=== PATIENT | female | born 1985 | race American Indian/Alaskan Native ===

== ENCOUNTER 2020-10-24 14:24 | Outpatient (CLI) | payer OTHER ==
[2020-10-24 15:12] LABS: % Iron Saturation 26.09 %; Alanine Aminotransferase 12 units/L (7-56); Albumin 3.7 g/dL (3.9-5); BUN/Creatinine Ratio 13; Blood Urea Nitrogen 10 mg/dL (7-17); Hemolysis Index 22; Iron 60 ug/dL (37-170); LDL Cholesterol,Direct 121 mg/dL (50-130); Total Iron Binding Capacity 230 mcg/dL (250-450)
[2020-10-24 15:24] LABS: Basophils % (Auto) 0.3 % (0.0-1.8); Eosinophils # (Auto) 0.1 K/mm3 (0.0-0.4); Eosinophils % (Auto) 1.3 % (0.0-4.3); Hemoglobin 13.4 gm/dl (10.1-14.3); Lymphocytes # (Auto) 2.8 K/mm3 (1.2-5.4); Lymphocytes % (Auto) 49.5 % (13.4-35.0); Mean Corpuscular HGB Conc 34 % (30-34); Mean Corpuscular Volume 85 fl (79-97); Monocytes # (Auto) 0.5 K/mm3 (0.0-0.8); Monocytes % (Auto) 8.7 % (0.0-7.3); Platelet Count 310 K/mm3 (140-440); Red Blood Count 4.69 M/mm3 (3.65-5.03); Red Cell Distribution Width 13.2 % (13.2-15.2)
[2020-10-24 18:37] LABS: Chol/HDL Ratio 3.74 %; HDL Cholesterol 47 mg/dL (40-59)
[2020-10-28 14:59] LABS: Vitamin D, 25-OH, D2 <4 ng/mL
== END 2020-10-24 14:25 | disposition home or self-care (01) ==
LOC: LAB 14:24
PROVIDERS: ATTEND Surgery
DX: E55.9 Vitamin D deficiency, unspecified (principal); K90.9 Intestinal malabsorption, unspecified; E66.01 Morbid (severe) obesity due to excess calories; K30 Functional dyspepsia; E11.9 Type 2 diabetes mellitus without complications
CPT/HCPCS: 36415; 80053; 80061; 82306; 82607; 82728; 83036; 83550; 84443; 85025; 85730

== ENCOUNTER → 2020-10-27 | Outpatient (CLI) | payer OTHER | END | disposition home or self-care (01) | LOC: SLR 11:00 | PROVIDERS: ATTEND Surgery | DX: G47.30 Sleep apnea, unspecified (principal) | CPT/HCPCS: 95810 ==

== ENCOUNTER 2020-11-21 07:50 | Day surgery (SDC) | payer OTHER ==
[~2020-11-21 07:50] MED LIST: SODIUM CHLORIDE 0.9% 1000 ML 1,000 ML IV SCH
[2020-11-21] MEDS ORDERED: LIDOCAINE MPF (2%) 20 MG/1 ML VIAL 5 ML ONE (09:00)
--- NOTE | 2020-11-21 09:02 | Anesthesia Day of Surgery ---
Anesthesia Day of Surgery - Day of Surgery Patient Examined: Yes Patient H&P Reviewed: Yes Patient is NPO: Yes
--- NOTE | 2020-11-21 09:03 | Anesthesia Consultation ---
Anesthesia Consult and Med Hx Date of service: 11/21/20 - Airway Anesthetic Teeth Evaluation: Good ROM Head & Neck: Adequate Mental/Hyoid Distance: Adequate Mallampati Class: Class II Intubation Access Assessment: Good - Pre-Operative Health Status ASA Pre-Surgery Classification: ASA2 Proposed Anesthetic Plan: MAC - Pulmonary Hx Smoking: Yes (Quit) Hx Asthma: Yes Hx Sleep Apnea: No - Gastrointestinal Hx Gastroesophageal Reflux Disease: No - Other Systems Hx Substance Use: Yes Hx Obesity: Yes
--- NOTE | 2020-11-21 09:47 | Discharge Summary ---
Providers - Providers Date of Admission: 11/21/2020 Date of discharge: 11/21/20 Attending physician: CRAIG MARTIN MD Primary care physician: PORTIA BERMAN Hospitalization Reason for admission: EGD Condition: Good Procedures: EGD with biopsy Hospital course: Pt presented for a pre-op EGD as part of planning for up coming bariatric surgery. Procedure was uneventful and pt recovered well and was discharged to home. Disposition: DC-01 TO HOME OR SELFCARE Final Discharge Diagnosis (Prints w/discharge instructions): GERD, PUD, morbid obesity Core Measure Documentation - Palliative Care Palliative Care/ Comfort Measures: Not Applicable - Core Measures Any of the following diagnoses?: none Exam - Physical Exam Narrative exam: unchanged from pre-op Plan Activity: advance as tolerated Diet: low carbohydrate Follow up with: PORTIA BERMAN MD [Primary Care Provider] - 7 Days
--- NOTE | 2020-11-21 09:48 | Operative Report ---
Operative Report Operative Report: DATE: 11/21/2020 SURGERY: Upper endoscopy. SURGEON: Kory Castano M.D. PROCEDURE: EGD with biopsy PRE OP DX: morbid obesity, GERD POST OP DX: morbid obesity, GERD TYPE OF ANESTHESIA: MAC. ESTIMATED BLOOD LOSS: None. COMPLICATIONS: None. SPECIMENS REMOVED: antral biopsy FINDINGS: 1. Small hiatal hernia. 2. Otherwise, normal esophagus, stomach and first portion of duodenum. INDICATIONS:INDICATION FOR PROCEDURE: Patient is a 35-year-old female with a long history of morbid obesity. She is planned to have a weight loss procedure and is here for preoperative planning EGD. PROCEDURE DETAILS: After consent was reviewed, patient was taken back to the operating room where patient was placed in the left lateral decubitus position and a bite block was placed in the mouth. After a time-out was called, MAC anesthesia was initiated. I then passed the endoscope into her oropharynx, into her esophagus, visualized the entire esophagus, which was all within normal limits. Z-line was noted to about 40 cm from incisors. I then visualized the stomach and the first portion of the duodenum and there were no abnormalities I could clearly visualize except for antral gastritis. A cold forceps biopsy of the antrum was taken and will be sent to pathology to evaluate for H.pylori. I then retroflexed the scope in the stomach and visualized the hiatus and I could see a small hiatal hernia. I then desufflated the stomach and removed the endoscope. Patient tolerated procedure well and was transferred to recovery room in good and stable condition.
[2020-11-21] MEDS ORDERED: propofoL 200 MG/20 ML VIAL IV ONE ×2 (10:42)
[2020-11-21 12:00] VITALS: BP 123/86
--- NOTE | 2020-11-21 19:27 | Post Anesthesia Evaluation ---
- Post Anesthesia Evaluation Patient Participated: Yes Airway Patent: Yes Stable Respiratory Function: Yes Nausea/Vomiting: No Temp > 96.8F: Yes Pain Manageable: Yes Adequeate Hydration: Yes Anesthesia Complications: No Block Receding Appropriately: Not Applicable Patient on Ventilator: No
== END 2020-11-21 07:51 | disposition home or self-care (01) ==
LOC: GIO 07:50
PROVIDERS: ATTEND Surgery
DX: K21.9 Gastro-esophageal reflux disease without esophagitis (principal); E66.01 Morbid (severe) obesity due to excess calories; K44.9 Diaphragmatic hernia without obstruction or gangrene; K29.50 Unspecified chronic gastritis without bleeding; J45.909 Unspecified asthma, uncomplicated; Z87.891 Personal history of nicotine dependence; Z68.42 Body mass index [BMI] 45.0-49.9, adult
CPT/HCPCS: 43239; 88305; 88342; J2704; J7030

== ENCOUNTER 2021-01-02 06:59 | Outpatient (CLI) | payer OTHER ==
--- NOTE | 2021-01-02 08:45 | Fluoroscopy Report ---
BARIUM SWALLOW Indication: MORBID OBESITY. Technique: Single and double contrast barium technique utilized to evaluate the esophagus. FINDINGS: To begin the exam, swallowing was evaluated in the lateral position under direct fluorosco py. Swallowing was normal. No mucosal irregularity, mass, mass effect, or critical stenosis. There were no abnormal tertiary c ontractions as seen with dysmotility. No gastroesophageal reflux. IMPRESSION: Unremarkable exam. Fluoroscopic time: 0.9 minutes Number of fluoroscopic images: 19 Signer Name: Rg Torres Jr, MD Signed: 01/02/2021 8:40 AM Workstation Name: [id number]
== END 2021-01-02 07:00 | disposition home or self-care (01) ==
LOC: FLUORO 06:59
PROVIDERS: ATTEND Surgery
DX: E66.01 Morbid (severe) obesity due to excess calories (principal)
CPT/HCPCS: 74220; Q9963

== ENCOUNTER 2021-01-09 14:54 | Outpatient (CLI) | payer OTHER ==
[2021-01-09 15:23] LABS: Amphetamine Screen,Urine Negative; Benzodiazepines Screen,Urine Negative; Cannabinoid Screen,Urine Negative; Cocaine Screen,Urine Negative; Methadone Screen,Urine Negative; Opiate Screen,Urine Negative
== END 2021-01-09 14:55 | disposition home or self-care (01) ==
LOC: LAB 14:54
PROVIDERS: ATTEND Surgery
DX: Z51.81 Encounter for therapeutic drug level monitoring (principal)
CPT/HCPCS: 80307

== ENCOUNTER 2021-01-15 07:08 | Inpatient (IN) | payer OTHER ==
[2021-01-11 10:25] LABS: Hematocrit 40.2 % (30.3-42.9); Hemoglobin 13.7 gm/dl (10.1-14.3); Mean Corpuscular HGB Conc 34 % (30-34); Mean Corpuscular Volume 86 fl (79-97); Platelet Count 309 K/mm3 (140-440); Red Blood Count 4.66 M/mm3 (3.65-5.03); Red Cell Distribution Width 13.6 % (13.2-15.2)
[2021-01-11 10:40] LABS: Alanine Aminotransferase 14 units/L (7-56); Albumin 3.7 g/dL (3.9-5); Blood Urea Nitrogen 11 mg/dL (7-17); Calcium 9.3 mg/dL (8.4-10.2); Hemolysis Index 6
[2021-01-11 11:59] LABS: BUN/Creatinine Ratio 18
--- NOTE | 2021-01-11 11:59 | Anesthesia Consultation ---
Anesthesia Consult and Med Hx Date of service: 01/15/21 - Airway Anesthetic Teeth Evaluation: Good ROM Head & Neck: Adequate Mental/Hyoid Distance: Adequate Mallampati Class: Class III Intubation Access Assessment: Possibly Difficult - Pulmonary Exam CTA: Yes - Cardiac Exam Cardiac Exam: RRR - Pre-Operative Health Status ASA Pre-Surgery Classification: ASA3 Proposed Anesthetic Plan: General - Pulmonary Hx Smoking: Yes (quit 1yr) Hx Asthma: Yes (childhood; normal spirometry on recent PFTs) Hx Respiratory Symptoms: No Hx Sleep Apnea: No (negative sleep study) - Cardiovascular System Hx Hypertension: No Hx Heart Attack/AMI: No (normal EF, normal stress test) Hx Percutaneous Transluminal Coronary Angioplasty (PTCA): No - Central Nervous System CVA: No - Gastrointestinal Hx Gastroesophageal Reflux Disease: Yes (functional dyspesia) - Endocrine Hx Renal Disease: No Hx Liver Disease: No Hx Insulin Dependent Diabetes: No Hx Non-Insulin Dependent Diabetes: No Hx Thyroid Disease: No - Other Systems Hx Substance Use: Yes (edible THC) Hx Obesity: Yes (BMI 45) - Additional Comments Anesthesia Medical History Comments: No hx anesthetic complications.
[~2021-01-15 07:08] MED LIST changes: +ACETAMINOPHEN IV 1,000 MG/100 ML BOTTLE IV NR; +ENOXAPARIN 40 MG/0.4 ML INJ SUB-Q NR; +LACTATED RINGERS 1,000 ML IV SCH; +MIDAZOLAM 2 MG/2 ML INJ IV NR; +SCOPOLAMINE TRANSDERMAL PATCH 72 HR TD NR; -SODIUM CHLORIDE 0.9% 1000 ML 1,000 ML IV SCH; +metroNIDAZOLE/NS 500 MG/100 ML 500 MG/100 ML BAG IV NR
[2021-01-15] MEDS ORDERED: GABAPENTIN 500 MG/10 ML ORAL LIQD ONE (08:02)
[2021-01-15] MEDS ORDERED: LIDOCAINE 1%/EPINEPHRINE 1:100,000 VIAL (20 ML) INFILTRATI ONE ×2 (08:08→11:31)
[2021-01-15] MEDS ORDERED: BUPIVACAINE/PF (0.5%) 5 MG/1 ML 30 ML VIAL INFILTRATI ONE (08:08)
[2021-01-15] MEDS ORDERED: BUPIVACAINE/PF (0.25%) 2.5 MG/ML 30 ML VIAL INFILTRATI ONE ×2 (08:09→11:30)
[2021-01-15] MEDS ORDERED: HYDROmorphone 1 MG/1 ML INJ IV PRN (08:30)
[2021-01-15] MEDS ORDERED: ONDANSETRON 4 MG/2 ML INJ IV PRN ×2 (08:30→14:00)
[2021-01-15] MEDS ORDERED: GABAPENTIN 500 MG/10 ML ORAL LIQD PO NR (09:30)
[2021-01-15] MEDS ORDERED: MAGNESIUM SULFATE 4 GM/100 ML BAG IV ONE (10:14)
[2021-01-15] MEDS ORDERED: LIDOCAINE MPF (2%) 20 MG/1 ML VIAL 5 ML ONE ×3 (10:15→10:18)
[2021-01-15] MEDS ORDERED: ROCURONIUM 50 MG/5 ML INJ IV ONE (10:15)
[2021-01-15] MEDS ORDERED: ONDANSETRON 4 MG/2 ML INJ ONE ×2 (10:15→11:12)
[2021-01-15] MEDS ORDERED: SODIUM CHLORIDE P/F VIAL 10 ML 10 ML ONE (10:17)
[2021-01-15] MEDS ORDERED: KETAMINE/STERILE WATER 50 MG/ML SYRINGE ONE (10:20)
[2021-01-15] MEDS ORDERED: dexAMETHasone 20 MG/5 ML VIAL ONE (11:12)
[2021-01-15] MEDS ORDERED: SODIUM CHLORIDE 0.9% IRR 1,500 ML BOTTLE IR ONE (11:31)
[2021-01-15] MEDS ORDERED: SUGAMMADEX SODIUM 200 MG/2 ML VIAL IV ONE (12:30)
[2021-01-15] MEDS ORDERED: KETOROLAC 30 MG/1 ML INJ ONE (12:31)
--- NOTE | 2021-01-15 12:46 | Operative Report ---
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 laparoscopic sleeve gastrectomy, 2. hiatal hernia repair Anesthesia: GETA and TAP block EBL: <10ml Specimen: gastric remnant Complication: none immediate Indication: 35 year old Female with a history of morbid obesity . Pt is here for sleeve gastrectomy for weight loss to achieve healthier weight and improve or resolve his co-morbidities. She expressed understanding of the risks and benefits. PROCEDURE IN DETAIL: After consent was reviewed, patient was taken back to the operating room, where patient was placed supine on the bed with both arms out. The patient's legs were doubly strapped to the bed. Patient had a foot board in place. Patient had a body warmer placed by anesthesia. General anesthesia was induced with successful endotracheal intubation. Patient was then prepped and draped in normal sterile surgical fashion. After a time-out was called, I made a stab incision in the left subcostal area and placed a Veress needle through this incision and insufflated the abdomen to 18 mmHg pressure. I then counted down a handsbreadth below the xiphoid process in the midline and slightly left lateral injected local anesthetic and made about 1 cm transverse incision. I then used a 5-mm Optiview trocar to enter into the abdomen. There was no gross injury to any intra-abdominal structures. I then placed a 30-degree scope through this port and inspected the abdomen. I then placed a 8-mm port in the right upper quadrant, and 1 5mm in the epigastric area below the costovertebral angle. I then placed a 15-mm port about a handsbreadth in the right mid abdomen. After which a 5mm port was placed in left upper quadrant port along the anterior axillary line in a similar fashion. A liver retractor was placed to the epigastric port to elevate the left lateral lobe and liver. There was a small hiatal hernia appreciated that was accentuated with right and left crural dissection. Hiatal hernia sac was dissected from the crura until the GE junction was resting about 2cm below the level of the diaphragm without tension. An anterior crura-plasty was preformed a U-stitch using surgidac suture. The anterior gastric fat pad was excised. Starting approximately 6 cm proximal to the pylorus, using a LigaSure device the short gastrics were taken all the way to the left trudi. Once the lateral portion of the stomach was mobile anesthesia passed a 40 Macedonian bougie along the medial aspect to act as a stent. Using serial firings of endoscopic stapler to gold, followed by 5 blue, the lateral portion of the stomach was transected making sure to did not close to the 2 cm to the incisura. All staple loads were supported with Ethicon buttress strips. The sleeve stomach was seen to be without kink obstruction or twisting. The pressure was decreased to 10 mmHg. The staple line was inspected for approximately 5 minutes. There was no significant bleeding appreciated except for a slight loose at the most distal portion of the staple line. Bleeding was minimal and easily controlled with minimal cautery. Tisseel was then sprayed along the entirety of the staple line. The liver retractor was removed. A TAP block was performed with 60ml of 0.25% marcaine along bilateral mid axillary lines starting from the subcostal region to just below the level of the umbilicus This was after the gastric remnant was grasped and pulled into the 15 mm trocar site. The stomach was extracted via the 15 mm trocar site. After the fascia had to be stretched with a Fouzia clamp to easily remove the stomach, the fascia was closed using a mario jean carlos device at the level of the fascia with an 0 PDS. trocars were removed under direct visualization. All skin incisions were closed with 4-0 Monocryl followed by Dermabond. Patient was awoken, extubated, and taken to recovery stable condition. All counts were correct.
[2021-01-15] MEDS ORDERED: hydrALAZINE 20 MG/1 ML INJ IV PRN (13:00)
[2021-01-15] MEDS ORDERED: HYDROcodone/Acetaminophen 7.5-325MG-15ML ORAL LIQD PO PRN (13:00)
[2021-01-15] MEDS: HYDROmorphone 1 MG/1 ML INJ IV PRN ×3 (14:00→22:51)
[2021-01-15] MEDS: KETOROLAC 30 MG/1 ML INJ IV SCH ×2 (14:00→20:13)
[2021-01-15] MEDS ORDERED: METOCLOPRAMIDE 10 MG/2 ML INJ IV PRN (14:00)
[2021-01-15] MEDS ORDERED: MORPHINE 2 MG/1 ML INJ IV PRN (14:00)
--- NOTE | 2021-01-15 15:12 | Anesthesia Day of Surgery ---
Anesthesia Day of Surgery - Day of Surgery Patient Examined: Yes Patient H&P Reviewed: Yes Patient is NPO: Yes
[2021-01-15] MEDS: ACETAMINOPHEN IV 1,000 MG/100 ML BOTTLE IV SCH ×2 (16:00→22:44)
[2021-01-15] MEDS: metroNIDAZOLE/NS 500 MG/100 ML 500 MG/100 ML BAG IV SCH ×2 (16:05→23:55)
[2021-01-15] MEDS: PANTOPRAZOLE 40 MG INJ IV SCH (20:13)
[2021-01-15] MEDS: SIMETHICONE 80 MG CHEW TAB PO PRN (20:14)
[2021-01-15] MEDS: LACTATED RINGERS 1,000 ML IV SCH (22:43)
[2021-01-15] MEDS: ceFAZolin/NS 1 GM/50 ML 1 GM/50 ML BAG IV SCH (22:44)
[2021-01-16] MEDS: KETOROLAC 30 MG/1 ML INJ IV SCH ×4 (02:12→18:53)
[2021-01-16] MEDS: SIMETHICONE 80 MG CHEW TAB PO PRN (02:13)
[2021-01-16] MEDS: ACETAMINOPHEN IV 1,000 MG/100 ML BOTTLE IV SCH ×2 (04:58→10:58)
[2021-01-16] MEDS: ceFAZolin/NS 1 GM/50 ML 1 GM/50 ML BAG IV SCH (04:59)
[2021-01-16 05:07] LABS: Hematocrit 37.6 % (30.3-42.9); Hemoglobin 12.6 gm/dl (10.1-14.3); Lymphocytes # (Auto) 1.3 K/mm3 (1.2-5.4); Lymphocytes % (Auto) 14.4 % (13.4-35.0); Mean Corpuscular HGB Conc 33 % (30-34); Mean Corpuscular Volume 87 fl (79-97); Monocytes # (Auto) 0.5 K/mm3 (0.0-0.8); Platelet Count 316 K/mm3 (140-440); Red Blood Count 4.32 M/mm3 (3.65-5.03); Red Cell Distribution Width 13.7 % (13.2-15.2)
[2021-01-16 05:26] LABS: Alanine Aminotransferase 13 units/L (7-56); Albumin 3.6 g/dL (3.9-5); Blood Urea Nitrogen 10 mg/dL (7-17); Calcium 9.3 mg/dL (8.4-10.2); Hemolysis Index 4
[2021-01-16 05:30] LABS: BUN/Creatinine Ratio 17
[2021-01-16] MEDS: HYDROmorphone 1 MG/1 ML INJ IV PRN ×2 (06:59→12:09)
[2021-01-16] MEDS: LACTATED RINGERS 1,000 ML IV SCH ×2 (09:04→15:42)
[2021-01-16] MEDS: ENOXAPARIN 40 MG/0.4 ML INJ SUB-Q SCH (09:04)
[2021-01-16] MEDS: metroNIDAZOLE/NS 500 MG/100 ML 500 MG/100 ML BAG IV SCH (09:04)
[2021-01-16] MEDS: PANTOPRAZOLE 40 MG INJ IV SCH (09:04)
--- OUTSIDE RECORDS SUMMARY | 2021-01-16 14:13 | External Medical Summary ---
:1985 Author Organization [facility], [facility] Address [address] [place] [address] Care Team Providers Name Role Phone Kory Castano Unavailable [phone] PROBLEMS Type Condition ICD9-CM [id number]-WB Onset Condition W/U Status Risk SNOM ED Notes Code Code Dates Status Code Problem Dietary Z71.3 Active confirmed 875756010 counseling and surveillance Problem Gastro-esopha K21.9 Active confirmed 930662 005 geal reflux disease without esophagitis Problem Functional K30 Active confirmed 6987812 dyspepsia Problem Morbid E66.01 Active confirmed 577011057 (severe) obesity due to excess calories ALLERGIES No Known Allergies ENCOUNTERS from 1984 to 2021-01-16 Encounter Location Date Provider Diagnosis [facility] [address] [place] [address] Jan, [place] [address] IMMUNIZATIONS No Information SOCIAL HISTORY Sex Assigned At : Social History Observation Description Sex Assigned At Unknown REASON FOR REFERRAL from 1984 to 2021-01-16 Diagnosis 1 Morbid (severe) obesity due to excess calories (E66.01) Diagnosis 2 Functional dyspepsia (K30) Diagnosis 3 Pain in right knee (M25.561) Diagnosis 4 Gastro-esophageal reflux dis ease without esophagitis (K21.9) Referral Organization [facility] Referring Provider First Name Kory Referring Provider Last Name Eyad Referring Provider Specialty Surgery Referred Provider [facility], - Referral Priority Routine VITAL SIGNS No information MEDICATIONS Medication SIG (Take, Route, Notes Start Date End Date Status Frequency, Duration) Ondansetron 4 MG 1-2 tablet on the Jan, Active tongue and allow to dissolve Orally q 4-6 hours prn nausea for 30 day(s) Omeprazole 40 MG 1 capsule 30 minutes Jan, Active before morning meal Orally Once a day for 30 day(s) HYDROcodone-Acetaminophe 15 ml as needed Orally Jan, 20 21 10 Jan, 2021 Active n 7.5-325 MG/15ML every 6 hrs for 7 days PROCEDURES No Information RESULTS No Results REASON FOR VISIT Gastric Sleeve MEDICAL (GENERAL) HISTORY Type Description Date Medical History knee pain Medical History dyspepsia Medical History hyadrenitis supuritiva Surgical History 2004 Surgical History 2007 Surgical History excison of hydrenitis tissue x 3 2019 Surgical History R knee arthroscopy 02/2020 Hospitalization History child Goals Section No Information Health Concerns No Information MEDICAL EQUIPMENT No Information MENTAL STATUS No Information FUNCTIONAL STATUS No Information ASSESSMENTS No Information PLAN OF TREATMENT Medication Medication Name Sig Start Date Stop Date Ondansetron 4 MG 1-2 tablet on the tongue and Jan, allow to dissolve Orally q 4-6 hours prn nausea for 30 day(s) HYDROcodone-Acetaminophen 15 ml as needed Orally every Jan, 2 021 10 Jan, 2021 7.5-325 MG/15ML 6 hrs for 7 days Omeprazole 40 MG 1 capsule 30 minutes before Jan, morning meal Orally Once a day for 30 day(s) Referrals Referral Date Details Next Appt Details Provider Name:Kory Castano, 2021-01- 5 09:00:00 AM, [address] [facility], [place], [place], [phone], Insurance Providers Payer Name Payer Payer Insured Patient Coverage Coverage End Address Phone Name Relationship to Start Date Simone e Insured [facility] [place] [address] Jose Manuel Anand self [place] [facility] [place] [id number]
--- NOTE | 2021-01-16 17:12 | Progress Note ---
Assessment and Plan 35-year-old female postop day #1 status post laparoscopic sleeve gastrectomy with hiatal hernia. Patient is afebrile and stable. Encourage patient to take more frequent small sips to increase overall oral intake so that she can hopefully be discharged tomorrow. Patient expressed understanding. Patient showing no clinical signs of leak or bleeding. Subjective Date of service: 01/16/21 Narrative: No acute events overnight. Patient says that she is right-sided abdominal pain that is exacerbated when she drinks. She has been reluctant to drink frequently and has had low p.o. intake today. She denies any nausea or vomiting and is ambulating well. Objective Vital Signs - 12hr 01/16/21 01/16/21 01/16/21 06:25 08:03 10:29 Temperature 98.1 F 98.7 F Pulse Rate 48 L 47 L Respiratory 18 18 Rate Blood Pressure 135/71 105/55 O2 Sat by Pulse 96 97 96 Oximetry 01/16/21 01/16/21 01/16/21 10:50 11:09 15:59 Temperature 98.3 F 97.8 F Pulse Rate 50 L 54 L Respiratory 18 18 Rate Blood Pressure 114/60 110/71 O2 Sat by Pulse 98 99 95 Oximetry 01/16/21 16:10 Temperature Pulse Rate Respiratory 18 Rate Blood Pressure O2 Sat by Pulse Oximetry - General physical appearance well developed, no distress, no pain, obese - Respiratory normal expansion, normal respiratory effort - Abdomen soft, other (Incisions clean dry and intact, appropriately tender to palpation) - Labs 01/16/21 04:02 01/16/21 04:02 Diabetes panel 01/16/21 Range/Units 04:02 Sodium 136 L (137-145) mmol/L Potassium 4.5 (3.6-5.0) mmol/L Chloride 100.7 (98-107) mmol/L Carbon Dioxide 27 (22-30) mmol/L BUN 10 (7-17) mg/dL Creatinine 0.6 (0.6-1.2) mg/dL Glucose 110 H (65-100) mg/dL Calcium 9.3 (8.4-10.2) mg/dL AST 17 (5-40) units/L ALT 13 (7-56) units/L Alkaline Phosphatase 82 (35-129) units/L Total Protein 7.2 (6.3-8.2) g/dL Albumin 3.6 L (3.9-5) g/dL Calcium panel 01/16/21 Range/Units 04:02 Calcium 9.3 (8.4-10.2) mg/dL Albumin 3.6 L (3.9-5) g/dL Pituitary panel 01/16/21 Range/Units 04:02 Sodium 136 L (137-145) mmol/L Potassium 4.5 (3.6-5.0) mmol/L Chloride 100.7 (98-107) mmol/L Carbon Dioxide 27 (22-30) mmol/L BUN 10 (7-17) mg/dL Creatinine 0.6 (0.6-1.2) mg/dL Glucose 110 H (65-100) mg/dL Calcium 9.3 (8.4-10.2) mg/dL Adrenal panel 01/16/21 Range/Units 04:02 Sodium 136 L (137-145) mmol/L Potassium 4.5 (3.6-5.0) mmol/L Chloride 100.7 (98-107) mmol/L Carbon Dioxide 27 (22-30) mmol/L BUN 10 (7-17) mg/dL Creatinine 0.6 (0.6-1.2) mg/dL Glucose 110 H (65-100) mg/dL Calcium 9.3 (8.4-10.2) mg/dL Total Bilirubin 0.30 (0.1-1.2) mg/dL AST 17 (5-40) units/L ALT 13 (7-56) units/L Alkaline Phosphatase 82 (35-129) units/L Total Protein 7.2 (6.3-8.2) g/dL Albumin 3.6 L (3.9-5) g/dL
[2021-01-17] MEDS: LACTATED RINGERS 1,000 ML IV SCH ×2 (01:00→06:04)
[2021-01-17] MEDS: KETOROLAC 30 MG/1 ML INJ IV SCH ×2 (02:04→08:21)
[2021-01-17 06:17] LABS: Basophils % (Auto) 0.6 % (0.0-1.8); Eosinophils % (Auto) 0.1 % (0.0-4.3); Lymphocytes % (Auto) 47.4 % (13.4-35.0); Mean Corpuscular HGB Conc 33 % (30-34); Mean Corpuscular Volume 88 fl (79-97); Monocytes # (Auto) 0.6 K/mm3 (0.0-0.8); Monocytes % (Auto) 9.3 % (0.0-7.3); Platelet Count 270 K/mm3 (140-440); Red Blood Count 4.11 M/mm3 (3.65-5.03); Red Cell Distribution Width 13.8 % (13.2-15.2)
[2021-01-17 06:32] LABS: Alanine Aminotransferase 10 units/L (7-56); Albumin 3.1 g/dL (3.9-5); BUN/Creatinine Ratio 16; Blood Urea Nitrogen 11 mg/dL (7-17); Calcium 8.9 mg/dL (8.4-10.2); Hemolysis Index 3
[2021-01-17] MEDS ORDERED: DOCUSATE SODIUM 100 MG CAP PO SCH (08:00)
[2021-01-17] MEDS: PANTOPRAZOLE 40 MG INJ IV SCH (08:22)
[2021-01-17] MEDS: ENOXAPARIN 40 MG/0.4 ML INJ SUB-Q SCH (08:22)
[2021-01-17 12:19] VITALS: BP 114/56
--- NOTE | 2021-01-18 15:28 | Discharge Summary ---
Providers - Providers Date of Admission: 01/15/21 07:08 Date of discharge: 01/17/21 Attending physician: CRAIG MARTIN MD 01/15/21 12:33 Physical Therapy Evaluation and Treat [CONS] Routine Comment: Reason For Exam: post op [facility] surgery Primary care physician: PORTIA BERMAN Hospitalization Reason for admission: s/p lap gastric sleeve Condition: Good Procedures: lap gastric sleeve with hiatal hernia repair Hospital course: Patient had an uneventful recovery status post laparoscopic gastric sleeve with hiatal hernia.. Patient remained afebrile and hemodynamically stable with normal vital signs. Patient was slow to getting adequate oral intake due to right-sided abdominal pain. By postop day 2 patient was taking in more clear liquids with less difficulty. Patient was discharged to home on postoperative day #2 showing no signs of clinical leak or bleeding. Patient to follow-up in the office in 2 weeks. Disposition: 01 HOME / SELF CARE / HOMELESS Final Discharge Diagnosis (Prints w/discharge instructions): morbid obesity Core Measure Documentation - Palliative Care Palliative Care/ Comfort Measures: Not Applicable - Core Measures Any of the following diagnoses?: none Exam - Constitutional Vitals: Temp Pulse Resp BP Pulse Ox 97.8 F 54 L 16 114/56 100 01/17/21 12:02 01/17/21 12:02 01/17/21 12:02 01/17/21 12:02 01/17/21 12:02 General appearance: Present: no acute distress, obese - Respiratory Respiratory effort: normal - Cardiovascular Heart Sounds: Present: S1 & S2 - Extremities Extremities: no ischemia - Abdominal General gastrointestinal: Present: other (incisions c/d/i, soft, appropriately tender with most tenderness on right side where 15mm trocar was placed) Plan Activity: advance as tolerated Diet: clear liquids Wound: open to air, keep clean and dry Follow up with: PORTIA BERMAN MD [Primary Care Provider] - 7 Days
== END 2021-01-17 18:48 | disposition home or self-care (01) | DRG 621 ==
LOC: 3A 07:08 → 3B 15:27
PROVIDERS: ADMIT Surgery; ATTEND Surgery
PROC: 0DB64Z3 Excision of Stomach, Percutaneous Endoscopic Approach, Vertical (ICD-10-PCS; principal; 2021-01-15)
PROC: 0BQT4ZZ Repair Diaphragm, Percutaneous Endoscopic Approach (ICD-10-PCS; 2021-01-15)
DX: E66.01 Morbid (severe) obesity due to excess calories (principal); Z68.42 Body mass index [BMI] 45.0-49.9, adult; Z71.3 Dietary counseling and surveillance; Z87.891 Personal history of nicotine dependence; K21.9 Gastro-esophageal reflux disease without esophagitis; K44.9 Diaphragmatic hernia without obstruction or gangrene; Z20.822 Contact with and (suspected) exposure to COVID-19
CPT/HCPCS: 36415; 80053; 84703; 85025; 85027; 88307; 88342; 94760; G0378; C9113; C9250; J0131; J0690; J1100; J1170; J1650; J1885; J2250; J2405; J2704; J3475; J3490; J7120; U0003